=== PATIENT | male | born 1965 | race Caucasian/White ===

== ENCOUNTER 2017-11-11 20:56 | Emergency (ER) | payer BC ==
--- NOTE | 2017-11-11 22:20 | Emergency Department Record ---
History of Present Illness - General Chief Complaint: Ankle/Foot Injury Stated Complaint: INJURY TO RT FOOT Time Seen by Provider: 11/11/17 21:48 Source: Patient Mode of Arrival: Ambulatory Limitations: No limitations - History of Present Illness Initial Comments: pt stepped in a hole injuring his r foot and ankle Complaint: Ankle injury, Foot injury Onset/Timin -: Hour(s) Injury: Ankle: Right, Foot: Right Place: Home Severity scale (1-10): 10 Improves With: Nothing Worsens With: Weight bearing Associated Symptoms: Swelling, Able to partially bear weight - Related Data Home Medications Medication Instructions Recorded Confirmed Last Taken Atorvastatin Calcium [Lipitor] 40 mg PO DAILY 11/11/17 11/11/17 Unknown Glimepiride [Amaryl] 2 mg PO DAILY 11/11/17 11/11/17 Unknown Lisinopril [Lisinopril] 10 mg PO DAILY 11/11/17 11/11/17 Unknown Metformin HCl [Metformin HCl] 1,000 mg PO BID 11/11/17 11/11/17 Unknown Sertraline HCl [Zoloft] 50 mg PO DAILY 11/11/17 11/11/17 Unknown Sitagliptin Phosphate [Januvia] 100 mg PO DAILY 11/11/17 11/11/17 Unknown Previous Rx's Medication Instructions Recorded Hydrocodone/Acetaminophen [[place] 1 each PO Q6HR #10 tablet 11/11/17 5-325 Tablet] Allergies Allergy/AdvReac Type Severity Reaction Status Date / Time bacitracin Allergy RASH Verified 11/11/17 21:28 [From Triple Antibiotic] neomycin Allergy RASH Verified 11/11/17 21:28 [From Triple Antibiotic] polymyxin B Allergy RASH Verified 11/11/17 21:28 [From Triple Antibiotic] oxycodone [From OxyContin] AdvReac VOMITING Verified 11/11/17 21:28 Travel Screening - Travel/Exposure Within Last 30 Days Have you traveled within the last 30 days?: No Review of Systems Reviewed: No additional complaints except as noted below Constitutional: Reports: As per HPI. Denies: Chills, Fever, Malaise, Night sweats, Weakness, Weight change Eyes: Reports: As per HPI. Denies: Eye discharge, Eye pain, Photophobia, Vision change ENT: Reports: As per HPI. Denies: Congestion, Dental pain, Ear pain, Epistaxis , Hearing loss, Throat pain Respiratory: Reports: As per HPI. Denies: Cough, Dyspnea, Hemoptysis, Stridor, Wheezes Cardiovascular: Reports: As per HPI. Denies: Arrhythmia, Chest pain, Dyspnea on exertion, Edema, Murmurs, Orthopnea, Palpitations, Paroxysmal nocturnal dyspnea, Rheumatic Fever, Syncope Endocrine: Reports: As per HPI. Denies: Fatigue, Heat or cold intolerance, Polydipsia, Polyuria Gastrointestinal: Reports: As per HPI. Denies: Abdominal pain, Constipation, Diarrhea, Hematemesis, Hematochezia, Melena, Nausea, Vomiting Genitourinary: Reports: As per HPI. Denies: Dysuria, Frequency, Hematuria, Incontinence, Retention, Testicular pain, Testicular mass, Urgency Musculoskeletal: Reports: As per HPI. Denies: Arthralgia, Back pain, Gout, Joint swelling, Myalgia, Neck pain Skin: Reports: As per HPI. Denies: Bruising, Change in color, Change in hair/ nails, Lesions, Pruritus, Rash Neurological: Reports: As per HPI. Denies: Abnormal gait, Confusion, Headache, Numbness, Paresthesias, Seizure, Tingling, Tremors, Vertigo, Weakness Psychiatric: Reports: As per HPI. Denies: Anxiety, Auditory hallucinations, Depression, Homicidal thoughts, Suicidal thoughts, Visual hallucinations Hematological/Lymphatic: Reports: As per HPI. Denies: Anemia, Blood Clots, Easy bleeding, Easy bruising, Swollen glands Past Medical History - SOCIAL HISTORY Smoking Status: Never smoker Alcohol Use: None Drug Use: None - RESPIRATORY Hx Respiratory Disorders: No - CARDIOVASCULAR Hx Cardio Disorders: No - NEURO Hx Neuro Disorders: No - GI Hx GI Disorders: No - Hx Genitourinary Disorders: No - ENDOCRINE Hx Endocrine Disorders: Yes Hx Diabetes: Yes (DM2) - MUSCULOSKELETAL Hx Musculoskeletal Disorders: No - PSYCH Hx Psych Problems: No - HEMATOLOGY/ONCOLOGY Hx Hematology/Oncology Disorders: No Family Medical History Any Significant Family History?: No Physical Exam - General General Appearance: Alert, Oriented x3, Cooperative, Mild distress - Head Head exam: Normal inspection - Eye Eye exam: Normal appearance, PERRL, EOMI Pupils: Normal accommodation - ENT ENT exam: Normal exam, Mucous membranes moist, Normal external ear exam, Normal orophraynx Ear exam: Normal external inspection. negative: External canal tenderness Nasal Exam: Normal inspection. negative: Discharge, Sinus tenderness Mouth exam: Normal external inspection, Tongue normal Teeth exam: Normal inspection. negative: Dental caries Throat exam: Normal inspection. negative: Tonsillar erythema, Tonsillar exudate - Neck Neck exam: Normal inspection, Full ROM. negative: Tenderness - Respiratory Respiratory exam: Normal lung sounds bilaterally. negative: Respiratory distress - Cardiovascular Cardiovascular Exam: Regular rate, Normal rhythm, Normal heart sounds - GI/Abdominal GI/Abdominal exam: Soft, Normal bowel sounds. negative: Tenderness - Rectal Rectal exam: Deferred - exam: Deferred - Extremities Extremities exam: Normal capillary refill, Tenderness Image of Feet: 1 - tender, swelling - Back Back exam: Reports: Normal inspection, Full ROM. Denies: Muscle spasm, Rash noted, Tenderness - Neurological Neurological exam: Alert, CN II-XII intact, Normal gait, Oriented X3 - Psychiatric Psychiatric exam: Normal affect, Normal mood - Skin Skin exam: Dry, Intact, Normal color, Warm Course Vital Signs 11/11/17 21:20 Temperature 98.1 F Pulse Rate [ 103 H Pulse Ox Probe] Respiratory 18 Rate Blood Pressure 134/97 [Left Arm] Pulse Ox 95 Disposition Disposition: Discharge Clinical Impression: Calcaneus fracture, right Qualifiers: Encounter type: initial encounter Calcaneus location: anterior process Fracture type: closed Fracture alignment: displaced Qualified Code(s): S92.021A - Displaced fracture of anterior process of right calcaneus, initial encounter for closed fracture Cuboid fracture Qualifiers: Encounter type: initial encounter Fracture type: closed Fracture alignment: nondisplaced Laterality: right Qualified Code(s): S92.214A - Nondisplaced fracture of cuboid bone of right foot, initial encounter for closed fracture Disposition: Home, Self-Care Condition: (1) Good Instructions: Calcaneal Fracture (ED), Foot Fracture in Adults (ED) Additional Instructions: follow up with dr romero without fail. ABSOLUTELY NO WEIGHT BEARING. Ice and elevate. Prescriptions: Hydrocodone/Acetaminophen [[place] 5-325 Tablet] 1 each PO Q6HR #10 tablet Referrals: JENARO ROMERO [DOCTOR OF OSTEOPATH] - [facility] [Provider Group] Forms: Patient Portal Access Quality - Quality Measures Quality Measures: N/A - Blood Pressure Screening Does Patient Have Any of the Following: No Blood Pressure Classification: Hypertensive Reading Systolic Measurement: 134 Diastolic Measurement: 97 Screening for High Blood Pressure: < Pre-Hypertensive BP, F/U Documented > [ [id number]] Pre-Hypertensive Follow-up Interventions: Follow-up with rescreen every year.
[2017-11-11] MEDS ORDERED: HYDROCODONE/APAP 7.5/325MG TABLET PO ONE (23:29)
--- NOTE | 2017-11-12 11:49 | RADIOLOGY REPORT ---
EXAM: ANKLE RIGHT 3 VIEWS HISTORY: TWISTED THE RIGHT ANKLE AND FOOT TODAY. DIFFUSE PAIN. TECHNIQUE: Three views of the right ankle were obtained. COMPARISON: Right foot from the same date. ENCOUNTER: Initial. FINDINGS: There is a mildly displaced fracture involving the anterior process of the calcaneus, best seen on the lateral view. There is the suggestion for a nondisplaced fracture through the mid portion of the cuboid as well, best seen on the lateral view. The ankle mortise is unremarkable. There is no ankle fracture. A small plantar calcaneal spur is present. IMPRESSION: MILDLY DISPLACED FRACTURE OF THE ANTERIOR PROCESS OF THE CALCANEUS AND SUSPECTED NONDISPLACED FRACTURE THROUGH THE CUBOID. JOB NUMBER: [id number] [facility]TDD
--- NOTE | 2017-11-12 11:52 | RADIOLOGY REPORT ---
EXAM: FOOT, RIGHT 3 VIEWS HISTORY: RIGHT FOOT AND ANKLE PAIN STATUS POST INJURY TODAY. TECHNIQUE: Three views of the right foot were obtained. COMPARISON: Right ankle series from the same date. ENCOUNTER: Initial. FINDINGS: A minimally displaced fracture is noted at the anterior process of the calcaneus. A nondisplaced fracture is also present through the cuboid and is best seen on the lateral view. The remaining bones and joints appear intact. No other fractures are identified. IMPRESSION: 1. MINIMALLY DISPLACED FRACTURE OF THE ANTERIOR PROCESS OF THE CALCANEUS. 2. NONDISPLACED FRACTURE OF THE CUBOID. JOB NUMBER: [id number] [facility]
== END 2017-11-11 23:54 | disposition home or self-care (01) ==
LOC: ER 20:56
DX: S92.021A Displaced fracture of anterior process of right calcaneus, initial encounter for closed fracture (principal); X50.0XXA Overexertion from strenuous movement or load, initial encounter; E11.9 Type 2 diabetes mellitus without complications; Y92.009 Unspecified place in unspecified non-institutional (private) residence as the place of occurrence of the external cause
CPT/HCPCS: 99283; 99284